=== PATIENT | female | born 1945 | race Caucasian/White ===

== ENCOUNTER 2016-12-05 16:38 | Inpatient (IN) | payer BC ==
--- NOTE | ~2016-12-05 | CN ---
Consultation Report [facility] [address] [place]. [address] NAME: JW AVILES : 49 STATUS : ADM IN PAT#: [id number] AGE: 71 ADM/REG DATE : 12/05/16 MR#: [id number] REPORT SERV DATE: 12/06/16 DICTATED BY: JOSÉ WHITE DATE: 12/06/16 REPORT STATUS : Draft TRANSCRIBED BY: MODL DATE: 12/06/16 INFECTIOUS DISEASE CONSULT DATE OF CONSULTATION: 12/06/2016 REASON FOR CONSULTATION: Positive blood cultures. HISTORY OF PRESENT ILLNESS: This is a 71-year-old female with a past medical history notable for hypertension, hypothyroidism, hyperlipidemia, and chronic back pain. She started getting increasing fatigue two to three weeks ago. As part of this evaluation, she was thought to possibly have a mild urinary tract infection and given three days of Bactrim. Over the past week or two though she has had some unsteadiness, lightheadedness, and dizziness. She had followup in her urologist's office, Dr. Conrad, this past Tuesday and some blood work was done. This returned apparently showing elevated creatinine and arrangements were made for followup actually today. However, yesterday, she fell at home and on one of these falls struck her left fifth toe suffering a laceration. For these reasons, she presented to the emergency department yesterday afternoon and was found to have hypotension with a blood pressure of 77/34 and a creatinine of 6.10. She also was found to have a laceration of her left fifth toe area and x-ray showed a fracture of the proximal phalanx. The patient was admitted and antihypertensives were held and she was given IV fluids. The patient's white blood cell count yesterday was 15.0 and blood cultures were obtained in the emergency department. By the daughter's history, these were obtained from one stick. Both sets returned positive at less than 24 hours today for gram-positive cocci in clusters. Rapid Bio[employer] testing indicates that these are coagulase-negative Staph, methicillin- resistant. The patient had additional blood cultures ordered prior to this result and was started on IV vancomycin which she is receiving now. Her repeat white blood cell count today prior to antibiotics was down to 8.4, and her blood pressure has improved and she overall feels better. The patient denies any recent fevers, chills, or sweats. Denies any skin or soft tissue infections, otherwise. PAST MEDICAL HISTORY: In addition to the above is notable for history of low back pain and a spinal cord stimulator which she still has, though it is not functional. She has also had some foot surgery with hardware. 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 I do not have the details of that. ALLERGIES: CEPHALOSPORINS AND LEVAQUIN, REACTION UNCLEAR. ALSO, CANNOT TAKE CODEINE. OUTPATIENT MEDICATIONS: Include aspirin, atenolol, Lipitor, Caltrate, Flexeril, Estrace, Advil, Synthroid, omeprazole. SOCIAL HISTORY: She is single, lives alone. Retired application systems administrator. Nonsmoker and nondrinker. No pets. FAMILY HISTORY: Notable for coronary artery disease in her father. Consultation Report [address] [place]. [address] NAME: JW AVILES ANN : 49 STATUS : ADM IN [facility]#: [id number] AGE: 71 ADM/REG DATE : 12/05/16 MR#: [id number] REPORT SERV DATE: 12/06/16 DICTATED BY: JOSÉ WHITE DATE: 12/06/16 REPORT STATUS : Draft TRANSCRIBED BY: MADI DATE: 12/06/16 REVIEW OF SYSTEMS: As outlined above. In addition, no significant headaches. Appetite has been decreased. No genitourinary symptoms. No nausea, vomiting, or diarrhea. No easy bleeding or bruising. PHYSICAL EXAMINATION: VITAL SIGNS: The patient weighs 116 kg. She has been afebrile since admission. Blood pressure 104/58, pulse 78, respiratory rate 16. GENERAL: She is pleasant and alert, in no acute distress. HEAD AND NECK: Shows a clear oral cavity. There is a left neck IV placed in the emergency department. Conjunctivae are normal. No petechiae. LUNGS: Clear to auscultation anteriorly. CARDIAC: Shows a regular rate and rhythm. Normal S1, S2 with a very soft 1/6 systolic ejection murmur at the aortic area. ABDOMEN: Obese, soft, and nontender throughout. EXTREMITIES: The left fifth toe has a laceration which has been sutured. There is mild soft tissue edema and faint erythema of the toe. SKIN: Without rash. She has ecchymoses in her left antecubital fossa area. LABORATORY STUDIES: White blood cell count as mentioned. Admission procalcitonin was 0.12. Hemoglobin 9.2, platelets 228. Creatinine today is down to 3.44. Albumin 2.4. Liver function tests on admission normal. Urinalysis on admission negative except for yeast, urine eosinophils negative. Microbiology studies as noted. Chest x-ray negative. IMPRESSION: I suspect these positive blood cultures are contaminants since they are coagulase-negative Staph and appear by history to be drawn from one stick and I do not see a likely source of a true coagulase-negative staph septicemia. She did have a mildly elevated white blood cell count on admission, but that normalized this morning without any antibiotics and she has had no fever here. PLAN: 1. We will discontinue the vancomycin. 2. Await the repeat blood culture results and we will follow with you. KENNEDY/MADI José White M.D. / [id number] Consultation Report [address] [address] NAME: JW AVILES : 47 STATUS : ADM IN [facility]#: [id number] AGE: 71 ADM/REG DATE : 12/05/16 MR#: [id number] REPORT SERV DATE: 12/06/16 DICTATED BY: JOSÉ WHITE DATE: 12/06/16 REPORT STATUS : Draft TRANSCRIBED BY: MADI DATE: 12/06/16 CC: Tarik Chicas Jr, MD YOUNG, TYE
--- NOTE | ~2016-12-05 | HP ---
History And Physical [place] [id number] [facility] [place]. [address] NAME: JW AVILES : 47 STATUS : ADM IN PAT#: [id number] AGE: 71 ADM/REG DATE : 12/05/16 MR#: [id number] REPORT SERV DATE: 12/05/16 DICTATED BY: JR. CHICAS WILLIAM JOHN DATE: 12/05/16 REPORT STATUS : Draft TRANSCRIBED BY: MODL DATE: 12/05/16 DATE OF ADMISSION: 12/05/2016 HISTORY OF PRESENT ILLNESS: A 71-year-old female who came to the emergency room after a fall. The patient is generally healthy. She has been on metformin in the past, but did not have a history of diabetes. She had a followup appointment about four months ago with Dr. Conrad, her primary care provider, who aziza labs and told her to stop taking her metformin, and then her creatinine was mildly elevated at 1.3 by family report. Then two to three weeks ago, the patient developed extreme fatigue and difficulty with concentration. She went to Dr. Conrad, was diagnosed with urinary tract infection and was given Bactrim Double Strength, one tablets twice a day for three days. To the family's knowledge, there was no comment about kidney function at that time. Around that same time, the patient also developed diarrhea, which has largely resolved, however, was present for several days. She said she has had poor oral intake in that she has continued to feel worse over the ensuing two weeks with orthostatic dizziness upon standing, extreme fatigue. She went back to Dr. Conrad's office on Tuesday where lab was drawn. She was called and told she was in kidney failure and has a followup appointment scheduled for tomorrow morning. The patient fell several times during the interim, most recently she fell this morning suffering a left fifth toe laceration. Upon entry into the emergency room, the patient was hypotensive with a blood pressure of 77/34. She has received a total of 3 L of IV fluids and her systolic blood pressure was in the mid 90s presently. I discussed the case with Dr. Kirk since there were no IMCU beds available. We agreed the patient would be admitted in the [facility] and the ICU would be available should her blood pressure not continue to increase. PAST MEDICAL HISTORY: Includes, 1. Hypertension. 2. Hyperlipidemia. 3. Hypothyroidism. 4. Multiple cervical spine surgeries with fixations. 5. History of deep brain stimulator placement with resultant seizures and eventual removal of the deep brain stimulators. 6. 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 7. History of lumbar surgery spine. 8. Bilateral foot open reduction internal fixation. 9. Glucose intolerance. MEDICATIONS: Include aspirin 81 daily, metformin b.i.d. Lipitor 80 daily, calcium carbonate 600 daily, Flexeril 10 daily p.r.n., estrogen 0.5 daily, ibuprofen 200 at the hour of sleep and as needed, Synthroid 50 mcg daily, Prilosec 40 mg daily. ALLERGIES: CEPHALOSPORINS, CODEINE, AND LEVAQUIN. FAMILY HISTORY: Mother at age 76 of old age. Father at age 76 of coronary artery History And Physical [address] [address] NAME: JW AVILES : 47 STATUS : ADM IN [facility]#: [id number] AGE: 71 ADM/REG DATE : 12/05/16 MR#: [id number] REPORT SERV DATE: 12/05/16 DICTATED BY: JR. CHICAS WILLIAM JOHN DATE: 12/05/16 REPORT STATUS : Draft TRANSCRIBED BY: MADI DATE: 12/05/16 disease and kidney failure. SOCIAL HISTORY: Lives alone in [place]. She is . 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 Denies alcohol, tobacco, or illicit drugs. REVIEW OF SYSTEMS: Full 12-point review of systems was conducted with the patient, and she denies all complaints except decreased appetite and diarrhea for the past one to two weeks with recent decreased urine output and history of remote seizures secondary to deep brain stimulator. Code status is discussed with the patient in the event of cardiopulmonary arrest, she desires full resuscitative measures. PHYSICAL EXAMINATION: VITAL SIGNS: Temperature 97.5, blood pressure 77/34, heart rate 67, respiratory rate of 16. After 2.5 L of IV fluids, the patient's heart rate is 84, blood pressure is 95/40. GENERAL: The patient was alert and oriented, slow to answer questions. HEENT: Her pupils were equal, round, and reactive to light. Extraocular motion intact. Sclerae anicteric. Oropharynx clear. Mucosal membranes were dry. NECK: Supple without jugular venous distention, thyromegaly, or bruits. LUNGS: Clear to auscultation bilaterally with symmetrical chest rise. CARDIOVASCULAR: S1, S2 without gallop, murmur, or rub. ABDOMEN: Soft, nontender. Bowel sounds present. No hepatosplenomegaly. EXTREMITIES: No clubbing, cyanosis, or edema. DERMATOLOGIC: There was no rash or other lesions. There was tenting evident on the skin. NEUROLOGIC: Cranial nerves 2 through 12 were intact. Strength and sensation were full and equal throughout. LYMPH NODE SURVEY: Negative in cervical and supraclavicular region. PSYCHIATRIC: Mood and affect were appropriate, although somewhat blunted responses. LABORATORY DATA: White count 15, hemoglobin 9.3, platelets 354, differential included 83% neutrophils. PT of 13.1 with an INR of 1.1, PTT 24.2. Procalcitonin 0.12. Urinalysis without blood, there were 5 white blood cells per high-power field. There was yeast and protein present. Sodium 146, potassium 4.8, chloride 117, bicarb 12, BUN 83, creatinine 6.1, glucose 142, calcium 10.5, lactate is 2, magnesium 1.9. Total protein 6.7, albumin 3.2, total bilirubin 0.2, alkaline phosphatase 82, AST of 19, ALT of 22, lipase 351. CK 192, troponin I of less than 0.02. Chest x-ray without infiltrate. There were stigmata of prior surgeries. ASSESSMENT/PLAN: A 71-year-old female with, 1. Hypotension secondary to dehydration without evidence of infection or sepsis. We will hold all blood pressure medications and all NSAIDs. We will give IV fluids. She has received 3 L of normal saline so far. We will then change D5W +3 amps of bicarb at 250 mL/h for 1 L, then 125 mL/h ongoing. 2. Metabolic acidosis as above. 3. Acute kidney injury, likely secondary to acute tubular necrosis plus or minus Bactrim, plus or minus decreased oral intake with diarrhea. Give IV fluids. Check renal ultrasound. Nephrology has already seen the patient. We will continue to follow. History And Physical [address] [facility] [address] NAME: JW AVILES : 47 STATUS : ADM IN PAT#: [id number] AGE: 71 ADM/REG DATE : 12/05/16 MR#: [id number] REPORT SERV DATE: 12/05/16 DICTATED BY: JR. CHICAS WILLIAM JOHN DATE: 12/05/16 REPORT STATUS : Draft TRANSCRIBED BY: MADI DATE: 12/05/16 4. History of hypertension. Obviously, we will hold all medications. 5. Hyperlipidemia. We will hold medications. 6. Hypothyroidism. Continue Synthroid. Check a thyroid-stimulating hormone. 7. Left fifth toe laceration, status post suturing. Remove sutures in 7-10 days. 8. Anemia will likely worsen with fluid hydration. We will check fecal occult blood, iron studies, B12, folate, and reticulocyte count. 9. Hypercalcemia, likely secondary to volume contraction. We will recheck in the morning. 10.Hyperglycemia. We will check hemoglobin A1c and place her on sliding scale insulin level 1. 11.The patient is full code. 12.Prophylaxis is subcu heparin. I spent 65 minutes on patient encounter, coordination of care, and documentation, greater than 50% were [id number] in this critical care encounter. WAnitaF/MADI Tarik Chicas Jr, MD / [id number] CC: Tarik Chicas Jr, MD YOUNG, TYE
--- NOTE | ~2016-12-05 | CN ---
Consultation Report [facility] [address] [place]. [address] NAME: JW EMERSON : 49 STATUS : REG ER PAT#: [id number] AGE: 71 ADM/REG DATE : 12/05/16 MR#: [id number] REPORT SERV DATE: 12/05/16 DICTATED BY: DATE: REPORT STATUS : Draft TRANSCRIBED BY: MODIndia DATE: 12/05/16 CONSULTATION DATE OF CONSULTATION: REASON FOR CONSULTATION: Acute kidney injury. HISTORY OF PRESENT ILLNESS: Ms. Emerson is a 71-year-old white female, who does give a history of some kidney disease in the past. She said, she was told approximately four months ago that her creatinine was not normal, the value was 1.3 at that time and then recently rechecked in the last week. Her primary care physician called her Tuesday, yesterday and told her that her kidney function was much worse and he was extremely concerned, and she does not know that value. She presented to the hospital today with weakness, falls, dizziness. She states, she has been weak for several days, now had decreased p.o. intake. Approximately week and a half ago, had a urinary tract infection, had been placed on Bactrim. She has also noticed decreased urine output for one and half weeks. No fevers, chills. No cough, congestion. No shortness of breath. She had been taking ibuprofen on a daily basis and recently had discontinued that because of GI complaints. No hematuria. She had chronic back pain, has been a little worse than usual, but can qualify. Denies any history of kidney stones. No history of diabetes. Does have a history of hypertension that has been reasonably well controlled. PAST MEDICAL HISTORY: Hypertension, hyperlipidemia, chronic back pain, hypothyroidism, and she denies history of diabetes, was put on a diabetic medication six months ago, and then taken off it within a couple of months because she states that her lab work was better. ALLERGIES: SHE STATES ALL PAIN MEDICINES, CEPHALOSPORINS, CODEINE, AND LEVAQUIN. FAMILY MEDICAL HISTORY: Negative for any kidney disease. SOCIAL HISTORY: She lives by herself. No tobacco, alcohol, or illicit drug use. MEDICATIONS: Aspirin, atenolol, atorvastatin, calcium carbonate, Flexeril, Estrace, Advil, levothyroxine, omeprazole. REVIEW OF SYSTEMS: 12-point review of systems obtained. Review of systems negative with the exception that in HPI. PHYSICAL EXAMINATION: VITAL SIGNS: Temp 97.5, blood pressure initially in the 70s, now in the 90s, respiratory rate 18, O2 saturation is 97%. GENERAL: This is a pleasant, cooperative, white female. She is awake, alert, and oriented, answers questions appropriately. Consultation Report [address] [place]. [address] NAME: JW EMERSON : 47 STATUS : REG ER PAT#: [id number] AGE: 71 ADM/REG DATE : 12/05/16 MR#: [id number] REPORT SERV DATE: 12/05/16 DICTATED BY: DATE: REPORT STATUS : Draft TRANSCRIBED BY: MADI DATE: 12/05/16 HEENT: Normocephalic, atraumatic. Conjunctivae clear. Sclerae anicteric. Pupils are equal and round. Oral mucosa is moist. NECK: Supple. Carotids are brisk. Neck veins flat. No lymphadenopathy. LUNGS: Respirations are even and unlabored. Breath sounds clear to auscultation. HEART: Rate is regular. I did not hear any murmur, rub, or gallop. ABDOMEN: Soft and nontender. Bowel sounds active. No masses. No hepatosplenomegaly. I did not hear any bruits. She does have some right CVA tenderness. EXTREMITIES: No edema, cyanosis, or clubbing. SKIN: Warm, dry, and intact. No unusual rash or skin lesions on exam. NEURO: No focal deficits. Mood and affect, pleasant and appropriate. PERTINENT LABS AND X-RAYS: Lactate of 2. WBC 15, H and H 9 and 28, platelets 354,000. Procalcitonin 0.12. Sodium 146, potassium 4.8, chloride 117, CO2 of 12, BUN of 83, creatinine of 6.1, calcium of 10.5, magnesium of 1.9, albumin of 3.2. LFTs are unremarkable. Troponin 0.02 and CPK of 196. IMPRESSION: 1. Acute kidney injury and question of chronic kidney disease. 2. Hypertension. 3. Metabolic acidosis. 4. Anemia. 5. Hypercalcemia. 6. Chronic back pain. 7. Recent urinary tract infection with Bactrim. 8. Chronic ibuprofen use. 9. Fall with weakness and left toe laceration. PLAN: She is already getting IV hydration. We will add some bicarbonate to fluids. Gilbert catheter has been placed. We will follow I's and O's and serial lab work. We will check SPEP given her hypercalcemia, which is most likely due to dehydration, but also given her pain, we will quantify protein excretion, renal ultrasound. Further orders and recommendations pending clinical course. Pending above and the course will proceed with further workup. Further orders and recommendations pending clinical course. We will go ahead and order a serologic workup so that we can be getting results. KAYLYN/MADI BEBETO Parra / [id number] CC: Consultation Report [address] [place]. [address] NAME: JW EMERSON : 49 STATUS : REG ER PAT#: [id number] AGE: 71 ADM/REG DATE : 12/05/16 MR#: [id number] REPORT SERV DATE: 12/05/16 DICTATED BY: DATE: REPORT STATUS : Draft TRANSCRIBED BY: MADI DATE: 12/05/16 Conrad Conrad
--- NOTE | ~2016-12-05 | DS ---
Discharge Summary [facility] [address] [place]. [address] NAME: JW AVILES : 49 STATUS : DIS IN PAT#: [id number] AGE: 71 ADM/REG DATE : 12/05/16 MR#: [id number] REPORT SERV DATE: 12/09/16 DICTATED BY: HOUSTON RICO DATE: 12/08/16 REPORT STATUS : Draft TRANSCRIBED BY: MODL DATE: 12/08/16 ADMISSION DATE: 12/05/2016 DISCHARGE DATE: 12/08/2016 DISCHARGE DIAGNOSES: 1. Severe acute kidney injury with creatinine of 6.10 on admission, improved to 1.5 on the day of discharge, this was likely secondary to dehydration as well as exposure to Bactrim. 2. Metabolic acidosis. 3. Anemia. 4. 2 out of 2 Coag-negative staph in blood cultures, likely have been contaminants with repeat cultures being negative. CONSULTANTS: 1. Infectious Disease, Dr. White. 2. Nephrology. PROCEDURES: None. HOSPITAL COURSE: This is a 71-year-old lady, who is Dr. Paige's [id number], who was admitted to the hospital with severe acute kidney injury. For details, please refer to excellent H and P by Dr. Tarik Chicas. In summary, the patient was admitted with acute kidney injury and was given vigorous IV fluid resuscitation. Fortunately, the patient actually responded to some IV fluid resuscitation well and her creatinine improved. The patient's metabolic acidosis also improved with improving renal function. Nephrology was on board and helped with the rehydrating process. The patient's creatinine improved from 6.10 to 1.5. There is a speculation that patient may have an underlying borderline chronic kidney disease, and her creatinine is likely very close to her baseline. With the aggressive IV fluid hydration with normal saline, the patient did develop a hypernatremia with sodium as high as 151 to 153. However, this is expected to correct itself over time if and when the patient resumes her normal regular diet. Also, during the hospital stay, the patient had one day episode of acute encephalopathy that lasted a few hours. Etiology is unclear, but the patient is back to baseline, and on the day of discharge, the patient has clear thought process and she is basically back to baseline. Also, during the hospital stay, the patient's initial two sets of blood cultures came back positive for gram-positive cocci which are Coag-negative. Infectious Disease have been involved and recommended repeat blood cultures, as the positive cultures likely have been contaminant. The repeat cultures have been negative and the patient has been stable off antibiotics. Also, note, the patient was seen by Physical Therapy, who recommended the patient be discharged to a [facility] facility for more intense rehab, however, the patient was absolutely against it and thus the patient is now being discharged to home with home health instead. Also of note, it was felt the patient may benefit from another day of hospital stay and it may be slightly premature for the patient to be discharged to home. However, the patient was quite adamant about wanting to be discharged to home and the patient was eventually cleared for discharge by Nephrology as well as Infectious Disease and thus the patient is going home with close outpatient followup plans. I have discussed with the patient as well as the patient's Discharge Summary [address] [address] NAME: JW AVILES : 47 STATUS : DIS IN PAT#: [id number] AGE: 71 ADM/REG DATE : 12/05/16 MR#: [id number] REPORT SERV DATE: 12/09/16 DICTATED BY: HOUSTON RICO DATE: 12/08/16 REPORT STATUS : Draft TRANSCRIBED BY: MADI DATE: 12/08/16 family regarding the situation and they are understanding. DISPOSITION: Home with home health, patient is also being discharged home with a front wheel walker. FOLLOWUP: Please follow up with PCP in the next one to two weeks. Total of 40 minutes spent in coordinating this patient's discharge today. DICTATED BY: MD HANS Mccormack/MADI Houston Rico MD / [id number] CC: MD HOUSTON Mccormack TYE
[2016-12-05 14:32] LABS: BASOPHILS 0.1 %; BASOPHILS ABSOLUTE 0.02 10/3/uL (0.0-0.16); EOSINOPHILS 0.3 %; EOSINOPHILS ABSOLUTE 0.04 10/3/uL (0.0-0.53); ER CBC TAT 0 Hrs 10 Mins; HEMATOCRIT 28.4 % (36.0-48.0); HEMOGLOBIN 9.3 g/dL (12.0-16.0); IMMATURE GRANULOCYTES 0.3 %; IMMATURE GRANULOCYTES ABSOLUTE 0.04 10/3/uL (0.0-0.11); LYMPHOCYTES 10.6 %; LYMPHOCYTES ABSOLUTE 1.59 10/3/uL (0.67-4.30); MEAN CORPUS HGB CONC 32.7 g/dL (32.0-36.0); MEAN CORPUSCULAR HEMOGLOB 30.1 pg (26.0-34.0); MEAN CORPUSCULAR VOLUME 91.9 fL (80-100); MEAN PLATELET VOLUME 9.3 fL (9.2-13.0); MONOCYTES 5.9 %; MONOCYTES ABSOLUTE 0.88 10/3/uL (0.21-1.20); NEUTROPHILS 82.8 %; PLATELET COUNT 354 10/3/uL (150-400); RED CELL COUNT 3.09 10/6/uL (4.0-5.6)
[2016-12-05 14:33] LABS: MANUAL DIFF NO %
[2016-12-05 14:51] LABS: ALBUMIN 3.2 G/DL (3.5-5.0); ALKALINE PHOSPHATASE 82 U/L (45-117); BUN (BLOOD UREA NITROGEN) 83 MG/DL (6-23); CALCIUM, SERUM 10.5 MG/DL (8.5-10.4); CHEST PAIN PROFILE TAT 0 Hrs 29 Mins; CHLORIDE, SERUM 117 MMOL/L (96-112); CPK 196 U/L (0-200); GFR AFRICAN AMERICAN 7 ML/MIN (>=60); GFR NON AFRICAN AMERICAN 6 ML/MIN (>=60); GLUCOSE, SERUM 142 MG/DL (60-99); POTASSIUM, SERUM 4.8 MMOL/L (3.5-5.3); SGOT(AST) 19 U/L (5-40); SGPT(ALT) 22 U/L (5-65); SODIUM, SERUM 146 MMOL/L (135-148); TOTAL BILIRUBIN 0.2 MG/DL (0-1.2); TOTAL PROTEIN 6.7 G/DL (6.0-8.5); TROPONIN I <0.02 NG/ML (<0.05)
[2016-12-05 14:52] LABS: CO2 (CARBON DIOXIDE) 12 MMOL/L (24-34); DIRECT BILIRUBIN < 0.1 MG/DL (0.0-0.4); INDIRECT BILIRUBIN(NOT ORDER) 0.1 MG/DL (0.1-0.9)
[2016-12-05 14:58] LABS: INTERNATIONAL NORMAL RATI 1.1 UNITS (-); PARTIAL THROMBO TIME 24.2 SEC (22.5-37.2); PROTIME (NOT ORD) 13.9 SEC (12.0-14.5)
[2016-12-05 15:25] LABS: PROCALCITONIN 0.12 ng/mL (<0.5)
[2016-12-05 15:56] LABS: ASCORBIC ACID (UR NOT ORDER) NEG (NEG); BILIRUBIN, URINE NEGATIVE (NEG); ER URINALYSIS TAT 0 Hrs 14 Mins; KETONE, URINE NEGATIVE (NEG); LEUKOCYTE ESTERASE(NOT OR NEG (NEG); NITRITE (URINE) NEG (NEG); WBC (NOT ORDERED) (RFLEX) 5 (0-5)
[~2016-12-05 16:38] MED LIST: ADVIL PO; ATEN50 PO; CALTRAT600 PO; ESTRACE0.5 MG PO; FLEX PO; HALF81 PO; LIPITOR80 MG PO; PRILOSEC40 MG PO; SYN.05 PO
[2016-12-05 20:57] LABS: T PROTEIN (ELECT)(NOT OR 5.5 G/DL (6.0-8.5)
[2016-12-05 21:56] LABS: COMPLEMENT C4 41.5 MG/DL (16-47)
[2016-12-05 21:57] LABS: FOLATE 13.7 NG/ML (>5.2)
[2016-12-06 05:07] LABS: BASOPHILS 0.1 %; BASOPHILS ABSOLUTE 0.01 10/3/uL (0.0-0.16); EOSINOPHILS 1.1 %; EOSINOPHILS ABSOLUTE 0.09 10/3/uL (0.0-0.53); HEMATOCRIT 27.8 % (36.0-48.0); HEMOGLOBIN 9.2 g/dL (12.0-16.0); IMMATURE GRANULOCYTES 0.1 %; IMMATURE GRANULOCYTES ABSOLUTE 0.01 10/3/uL (0.0-0.11); LYMPHOCYTES 26.6 %; LYMPHOCYTES ABSOLUTE 2.23 10/3/uL (0.67-4.30); MANUAL DIFF NO %; MEAN CORPUS HGB CONC 33.1 g/dL (32.0-36.0); MEAN CORPUSCULAR VOLUME 90.6 fL (80-100); MONOCYTES 7.9 %; MONOCYTES ABSOLUTE 0.66 10/3/uL (0.21-1.20); NEUTROPHILS 64.2 %; NEUTROPHILS ABSOLUTE 5.39 10/3/uL (2.02-8.40); PLATELET COUNT 228 10/3/uL (150-400); RBC DISTRIBUTION WIDTH 14.9 % (12.0-16.0); RED CELL COUNT 3.07 10/6/uL (4.0-5.6); RETICULOCYTE COUNT 1.4 % (0.5-2.5); RETICULOCYTE COUNT ABSOLUTE 43.6 10/3/uL (20.2-119.8); WHITE BLOOD CELLS 8.4 10/3/uL (4.5-10.5)
[2016-12-06 05:48] LABS: CHLORIDE, SERUM 125 MMOL/L (96-112); FERRITIN 153 NG/ML (8-252); GLUCOSE, SERUM 156 MG/DL (60-99); IRON BINDING CAPACITY 233 MCG/DL (225-410); IRON, SERUM 57 MCG/DL (35-150); PHOSPHORUS, SERUM 3.2 MG/DL (2.5-4.5); SODIUM, SERUM 147 MMOL/L (135-148)
[2016-12-06 05:49] LABS: ALBUMIN 2.4 G/DL (3.5-5.0); BUN (BLOOD UREA NITROGEN) 71 MG/DL (6-23); CALCIUM, SERUM 8.5 MG/DL (8.5-10.4); CO2 (CARBON DIOXIDE) 18 MMOL/L (24-34); CREATININE 3.44 MG/DL (0.55-1.02); FOLATE 12.4 NG/ML (>5.2); GFR AFRICAN AMERICAN 15 ML/MIN (>=60); GFR NON AFRICAN AMERICAN 13 ML/MIN (>=60); POTASSIUM, SERUM 3.8 MMOL/L (3.5-5.3)
[2016-12-06 10:20] LABS: ANA TITER <1:40 TITER
[2016-12-06 13:47] LABS: A/G 1.29 RATIO (0.9-2.10); ALB RELATIVE % 56.4 % (60.0-89.0); ALPHA 1 (ELECTRO) 0.28 GM/DL (0.1-0.4); ALPHA 1 RELAT % (NOT ORD) 5.1 % (1.0-4.0); ALPHA 2 (ELECTRO) 0.86 GM/DL (0.5-1.10); ALPHA 2 RELAT % 15.7 % (4.5-26.0); BETA GLOBULIN (SPE) 0.78 GM/DL (0.60-1.30); BETA RELATIVE % 14.1 % (9.0-22.0); GAMMA GLOBULIN (SPE) 0.48 G/DL (0.70-1.60); GAMMA RELAT % 8.7 % (6.0-22.0)
[2016-12-07 08:22] LABS: BASOPHILS 0.3 %; BASOPHILS ABSOLUTE 0.02 10/3/uL (0.0-0.16); EOSINOPHILS 1.5 %; EOSINOPHILS ABSOLUTE 0.11 10/3/uL (0.0-0.53); HEMATOCRIT 27.8 % (36.0-48.0); HEMOGLOBIN 9.4 g/dL (12.0-16.0); IMMATURE GRANULOCYTES 0.1 %; IMMATURE GRANULOCYTES ABSOLUTE 0.01 10/3/uL (0.0-0.11); LYMPHOCYTES 31.5 %; LYMPHOCYTES ABSOLUTE 2.24 10/3/uL (0.67-4.30); MEAN CORPUS HGB CONC 33.8 g/dL (32.0-36.0); MEAN CORPUSCULAR HEMOGLOB 30.2 pg (26.0-34.0); MEAN CORPUSCULAR VOLUME 89.4 fL (80-100); MEAN PLATELET VOLUME 8.9 fL (9.2-13.0); MONOCYTES ABSOLUTE 0.78 10/3/uL (0.21-1.20); NEUTROPHILS 55.6 %; NEUTROPHILS ABSOLUTE 3.94 10/3/uL (2.02-8.40); PLATELET COUNT 245 10/3/uL (150-400); RBC DISTRIBUTION WIDTH 14.5 % (12.0-16.0); RED CELL COUNT 3.11 10/6/uL (4.0-5.6); WHITE BLOOD CELLS 7.1 10/3/uL (4.5-10.5)
[2016-12-07 08:23] LABS: MANUAL DIFF NO %
[2016-12-07 08:35] LABS: CALCIUM, SERUM 8.7 MG/DL (8.5-10.4); CHLORIDE, SERUM 118 MMOL/L (96-112); GFR AFRICAN AMERICAN 31 ML/MIN (>=60); GFR NON AFRICAN AMERICAN 27 ML/MIN (>=60); GLUCOSE, SERUM 133 MG/DL (60-99); POTASSIUM, SERUM 3.3 MMOL/L (3.5-5.3); SODIUM, SERUM 151 MMOL/L (135-148)
[2016-12-07 08:36] LABS: BUN (BLOOD UREA NITROGEN) 44 MG/DL (6-23); CO2 (CARBON DIOXIDE) 24 MMOL/L (24-34); CREATININE 1.89 MG/DL (0.55-1.02)
[2016-12-08 06:15] LABS: ALBUMIN 2.4 G/DL (3.5-5.0); CALCIUM, SERUM 8.3 MG/DL (8.5-10.4); CHLORIDE, SERUM 119 MMOL/L (96-112); CO2 (CARBON DIOXIDE) 28 MMOL/L (24-34); CREATININE 1.51 MG/DL (0.55-1.02); GFR AFRICAN AMERICAN 40 ML/MIN (>=60); GFR NON AFRICAN AMERICAN 35 ML/MIN (>=60); GLUCOSE, SERUM 113 MG/DL (60-99); SODIUM, SERUM 153 MMOL/L (135-148)
[2016-12-08 06:17] LABS: BUN (BLOOD UREA NITROGEN) 27 MG/DL (6-23); PHOSPHORUS, SERUM 1.8 MG/DL (2.5-4.5)
== END 2016-12-08 17:46 | disposition home health service (06) | DRG 682 ==
LOC: ER 16:38 → 6NO 18:36
PROVIDERS: Emergency Medicine; Internal Medicine; Internal Medicine Nephrology; Nurse Practitioner
DX: N17.9 Acute kidney failure, unspecified (principal); R57.1 Hypovolemic shock; G92 Toxic encephalopathy; E87.0 Hyperosmolality and hypernatremia; S92.512A Displaced fracture of proximal phalanx of left lesser toe(s), initial encounter for closed fracture; D63.8 Anemia in other chronic diseases classified elsewhere; E87.2 Acidosis; E86.0 Dehydration; E03.9 Hypothyroidism, unspecified; T37.0X5A Adverse effect of sulfonamides, initial encounter; D64.9 Anemia, unspecified; E78.5 Hyperlipidemia, unspecified; I10 Essential (primary) hypertension; W19.XXXA Unspecified fall, initial encounter; S91.115A Laceration without foreign body of left lesser toe(s) without damage to nail, initial encounter; E74.39 Other disorders of intestinal carbohydrate absorption; E83.52 Hypercalcemia; M54.5 Low back pain; E83.42 Hypomagnesemia; Z88.5 Allergy status to narcotic agent; Z88.1 Allergy status to other antibiotic agents
CPT/HCPCS: 71010; 73630-LT; 76775; 80048; 80069; 80076; 81001; 82272; 82550; 82570; 82607; 82728; 82746; 82962; 83036; 83540; 83550; 83605; 83690; 83735; 84145; 84155; 84156; 84165; 84300; 84443; 84484; 85025; 85045; 85610; 85730; 86039; 86160; 87040; 87077; 87150; 87186; 89190; 93005; 96360; 96361; 97116-GP; 97162-GP; 99291; A9270-GY; J3370; J3475; J3486